=== PATIENT | male | born 1945 | race Caucasian/White ===

== ENCOUNTER → 2018-05-29 | Day surgery (SDC) | payer MEDICARE, BC ==
[~2018-05-29] VITALS: Ht 175.4 cm; Wt 83.0 kg
[2018-05-29] VITALS (10 sets, daily range): BP systolic 90–123; BP diastolic 66–89; PULSE 57–103; TEMP 97.6
[~2018-05-29] MED LIST: ASPIRIN 81M81 MG/TA2 PO; B-121000 MCG PO; BETAPACE 80MG80 MG PO; CENTRUM SILVER1 CTB PO; COUMADIN 2MG2 MG/TAB PO; COZAAR 25MG25 MG/TAB PO; CRESTOR5 MG PO; LASIX 20MG TABL20 MG PO; MASON NATURAL2000 IU PO; PLAVIX 75MG TAB75 MG PO; VITAMIN C500 MG PO; ZANTAC 7575 MG PO; ZOCOR 40MG40 MG PO
[2018-05-29 09:14] LABS: HEMATOCRIT 44.1 % (42.0-52.0); HEMOGLOBIN 14.6 g/dl (13.5-18.0); MEAN CELL VOLUME 93 fl (80.0-100.0); MEAN CORPUSCULAR HEMOGLOBIN 31 pg (27.0-31.0); MEAN CORPUSCULAR HGB CONC 33 g/dl (33.0-37.0); MEAN PLATELET VOLUME 10.4 fl (7.4-10.4); PLATELET COUNT 181 K/mm3 (130-400); RED BLOOD COUNT 4.75 M/mm3 (4.20-5.60); REDCELL DISTRIBUTION WIDTH-CV 13.9 % (11.5-14.5)
[2018-05-29 09:21] LABS: PROTHROMBIN TIME 11.1 SECONDS (9.7-12.8)
[2018-05-29 09:26] LABS: CALCIUM 9.7 mg/dL (8.4-10.2); CREATININE, serum 1.95 mg/dL (0.66-1.25); POTASSIUM 3.9 mmol/L (3.4-5.0)
--- NOTE | 2018-05-29 12:50 | NUR ---
ALL MEDS GIVEN VIA VERBAL WITH READBACK. SEE MERGE FOR ADMIN TIMES.
--- NOTE | 2018-05-29 14:00 | NUR ---
Pt returned to [facility] 12 per bed s/p heart cath. Pt resting well, at bedside.
--- NOTE | 2018-05-29 15:50 | NUR ---
Dr. Galeano in room to assess pt. Ok to discharge pt if no other concerns develope.
--- NOTE | 2018-05-29 16:18 | NUR ---
Report to Valeria Colón RN who assumed care at this time.
== END ==
LOC: COL.CAR 08:26
PROVIDERS: Internal Medicine Interventional Cardiology
DX: I25.10 Atherosclerotic heart disease of native coronary artery without angina pectoris (principal); I13.0 Hypertensive heart and chronic kidney disease with heart failure and stage 1 through stage 4 chronic kidney disease, or unspecified chronic kidney disease; I50.9 Heart failure, unspecified; N18.3 Chronic kidney disease, stage 3 (moderate); I48.91 Unspecified atrial fibrillation; I71.2 Thoracic aortic aneurysm, without rupture; I34.0 Nonrheumatic mitral (valve) insufficiency; Z79.82 Long term (current) use of aspirin; Z79.02 Long term (current) use of antithrombotics/antiplatelets; Z95.1 Presence of aortocoronary bypass graft; Z86.73 Personal history of transient ischemic attack (TIA), and cerebral infarction without residual deficits; Z87.891 Personal history of nicotine dependence
CPT/HCPCS: C1760; C1769; C1894; J1644; J1940; J2250; J3010; Q9967